=== PATIENT | female | born 1985 | race African-American/Black ===

== ENCOUNTER 2018-03-02 16:55 | Emergency (ER) | payer SELFPAY ==
[~2018-03-02] VITALS: Ht 182.9 cm; Wt 80.0 kg
[2018-03-02 20:13] LABS: BASOPHILS % 0.3 % (0.0-2.0); EOSINOPHILS % 1.1 % (0.0-5.0); HEMATOCRIT. 42.7 % (36.0-48.0); HEMOGLOBIN. 14.3 g/dL (12.0-16.0); MEAN CORPUSCULAR HEMOGLOBIN 29.1 pg (28.0-32.0); MEAN PLATELET VOLUME 7.6 fl (7.4-10.4); MONOCYTES % 7.6 % (2.0-8.0); PLATELET 268 x1000/uL (130-400); RED BLOOD CELL COUNT 4.91 mill/uL (4.2-5.4); RED CELL DISTRIBUTION WIDTH 12.6 % (11.6-14.6)
[2018-03-02 20:16] LABS: CHLORIDE 104 mEq/L (98-107)
[2018-03-02 20:19] LABS: ETHANOL BLOOD < 10 mg/dL
[2018-03-02 20:20] LABS: PROTHROMBIN TIME 10.5 sec (9.4-11.6)
[2018-03-02 20:23] LABS: HCG SCREEN NEGATIVE
[2018-03-02 23:54] LABS: CLARITY URINE CLEAR (CLEAR); COLOR URINE YELLOW (YELLOW); KETONES URINE 2+ (NEGATIVE); LEUKOCYTE ESTERASE URINE NEGATIVE (NEGATIVE); NITRITE URINE NEGATIVE (NEGATIVE); OCCULT BLOOD URINE NEGATIVE (NEGATIVE); PROTEIN URINE NEGATIVE (NEGATIVE); SPECIFIC GRAVITY URINE 1.026 (1.005-1.030)
[2018-03-03 00:11] LABS: METHADONE URINE SCREEN NEGATIVE (NEGATIVE)
[2018-03-03 00:12] LABS: *AMPHETAMINES SCREEN URINE NEGATIVE (NEGATIVE); *BENZODIAZEPINES SCREEN URINE NEGATIVE (NEGATIVE); CANNABINOID URINE SCREEN NEGATIVE (NEGATIVE); OPIATES URINE SCREEN NEGATIVE (NEGATIVE); PHENCYCLIDINE URINE SCREEN NEGATIVE (NEGATIVE)
[2018-03-03 00:13] LABS: *BARBITURATES SCREEN URINE NEGATIVE (NEGATIVE); *COCAINE SCREEN URINE NEGATIVE (NEGATIVE)
[2018-03-03] MEDS ORDERED: CEPHALEXIN 500MG CAPSULE PO ONE (04:00)
[2018-03-03 04:30] VITALS: BP 125/86
[2018-03-03] MEDS ORDERED: MUPIROCIN 2% OINT 22GM TOP SCH (06:00)
== END 2018-03-03 04:30 | disposition home or self-care (01) ==
LOC: ER 20:06
DX: L01.00 Impetigo, unspecified (principal); D72.829 Elevated white blood cell count, unspecified; Z79.899 Other long term (current) drug therapy
CPT/HCPCS: 36415; 71045; 80053; 80305; 81003; 83605; 83690; 84703; 85025; 85610; 87040; 87086; 93005; 99285; G0482; Z7610